=== PATIENT | male | born 1965 | race Caucasian/White ===

== ENCOUNTER → 2021-08-05 11:23 | Outpatient (CLI) | payer BC, SELFPAY ==
--- NOTE | ~2021-08-05 | XR_ITS ---
EXAMINATION: XR chest 2V 08/05/2021 11:36 INDICATION: Wheezing PROCEDURE: 2 view chest COMPARISON: 11/16/2009 FINDINGS: The lungs are clear. The cardiomediastinal silhouette is within normal limits. There are no pleural effusions. There is no pneumothorax suspected. IMPRESSION: 1: NO ACUTE CARDIOPULMONARY DISEASE. Reviewed, dictated and finalized at location A. RY [employer]PERATOR
== END ==
PROVIDERS: PCP Internal Medicine; Visit Provider Internal Medicine
DX: R06.2 Wheezing (principal); I10 Essential (primary) hypertension
CPT/HCPCS: 71046

== ENCOUNTER 2024-04-14 17:08 | Outpatient (CLI) | payer BC, SELFPAY ==
[2024-04-14 17:49] LABS: D Dimer 0.19 mg/L (0.19-0.50)
== END 2024-04-14 17:09 | disposition home or self-care (01) ==
PROVIDERS: PCP Internal Medicine; Visit Provider Internal Medicine
DX: M25.561 Pain in right knee (principal)
CPT/HCPCS: 36415; 73562; 85380